=== PATIENT | female | born 1970 | race Caucasian/White ===

== ENCOUNTER 2019-12-06 05:54 | Observation (INO) | payer BC ==
[~2019-12-06 05:54] MED LIST: Buffered Lidocaine 1% SYRIN* 1 ML/SYRINGE INTRADERM ONE; Famotidine IV* 10 MG/ML 2 ML (20 mg) ONE; Levalbuterol 0.63MG/3ML NEB* UNIT OF USE INH ONE; Scopolamine 1.5 mg* PATCH ONE
[2019-12-06] MEDS ORDERED: Levalbuterol 0.63MG/3ML NEB* UNIT OF USE INH ONE (06:00)
[2019-12-06] MEDS ORDERED: Scopolamine 1.5 mg* PATCH TRANSDERM ONE (06:00)
[2019-12-06] MEDS ORDERED: Famotidine IV* 10 MG/ML 2 ML (20 mg) IV ONE (06:00)
[2019-12-06] MEDS ORDERED: Lactated Ringers 1000 ML Bag* 1,000 ML IV SCH (06:00)
[2019-12-06] MEDS ORDERED: Bupivacaine 0.5% W/EPI SDV* 30 ML VIAL ONE (06:54)
[2019-12-06] MEDS ORDERED: Bacitracin INJECTION* 50,000 UNITS ONE (06:55)
[2019-12-06] MEDS ORDERED: Vancomycin(*) 1,000 MG in NS 0.9% 250 ML* 250 ML IV ONE (07:00)
[2019-12-06] MEDS ORDERED: fentaNYL* 50 MCG/ML 5 ML VIAL (250 MCG VIAL) ONE (07:10)
[2019-12-06] MEDS ORDERED: Dexamethasone IV* 4 MG/ML 1 ML (4 MG) ONE (07:10)
[2019-12-06] MEDS ORDERED: Midazolam* 1 MG/ML 5 ML VIAL (5 MG) ONE (07:10)
[2019-12-06] MEDS ORDERED: Propofol* 10 MG/ML 20 ML BTL ONE (07:10)
[2019-12-06] MEDS ORDERED: Lidocaine 2% PF * 5 ML VIAL ONE (07:10)
[2019-12-06] MEDS ORDERED: KETAMINE HCL* 50 MG/ML 10 ML VIAL ONE (07:10)
[2019-12-06] MEDS ORDERED: Ondansetron INJ* 2 MG/ML VIAL ONE (07:10)
[2019-12-06] MEDS ORDERED: Rocuronium* 10 MG/ML VIAL ONE (07:10)
[2019-12-06] MEDS ORDERED: Artificial Tear OPHTH.OINT* 3.5 GM ONE (07:12)
[2019-12-06] MEDS ORDERED: EPHEDrine (Pressors)* 50 MG/ML VIAL ONE (08:23)
[2019-12-06] MEDS ORDERED: Phenylephrine 40 MCG/ML SYRINGE ONE (08:34)
[2019-12-06] MEDS ORDERED: Phenylephrine 10 MG/ML VIAL* 1 ML VIAL ONE (08:46)
[2019-12-06] MEDS ORDERED: HYDROmorphone INJ1* 1 MG/ML SYRINGE IV PRN (09:05)
[2019-12-06] MEDS ORDERED: Ondansetron INJ* 2 MG/ML VIAL IV PRN ×2 (09:05→10:34)
[2019-12-06] MEDS ORDERED: Naloxone* 0.4 MG/ML 1 ML VIAL IV PRN (09:05)
[2019-12-06] MEDS ORDERED: Levalbuterol 0.63MG/3ML NEB* UNIT OF USE INH PRN (09:05)
[2019-12-06] MEDS ORDERED: fentaNYL* 50 MCG/ML 2 ML VIAL (100 MCG VIAL) IV PRN (09:05)
[2019-12-06] MEDS ORDERED: Sugammadex * 200 MG/2 ML VIAL IV PUSH ONE (09:37)
[2019-12-06] MEDS ORDERED: Magnesium Hydroxide LIQ* 30 ML UDC PO PRN (10:34)
[2019-12-06] MEDS ORDERED: Acetaminophen TAB* 325 MG PO PRN (10:34)
[2019-12-06] MEDS ORDERED: oxyCODONE TAB* 5 MG TAB PO PRN ×2 (10:34)
[2019-12-06] MEDS ORDERED: Cyclobenzaprine TAB* 10 MG PO PRN (10:47)
[2019-12-06] MEDS ORDERED: Albuterol HFA INHALER* 8 gm MDI INH PRN (10:47)
[2019-12-06] MEDS ORDERED: Hydrocodone/Acetamin 10/325 MG 1 TAB PO PRN (10:47)
--- NOTE | 2019-12-06 11:05 | PN ---
Progress Note - Progress Note Date of Service: 12/06/19 SOAP: Postop Note Subjective: []Patient tolerated procedure well. Pain is well controlled. Preop LLE pain not present at this time. Objective: []VSS, Afebrile Wound s,c,d AAOx3 [place]AM[place], CN II-XII grossly intact. Motor 5/5 all extremities Sensory grossly intact to light touch Assessment: []49 yof POD#0 Left L5-S1 MIS discectomy Plan: []Monitor VS, Neurochecks OOB with assistance. Advance diet as tolerated. DC planning, later today or in am. DC instructions were given to the patient and her . No lifting, No bending, No driving. Keep incision dry. May shower in two days. No baths. Follow up in office in 7-[address] Cole's care. Meño Coffman MD
[2019-12-06] MEDS ORDERED: sulfaSALAzine TAB* 500 MG PO SCH ×2 (13:00→18:00)
--- NOTE | 2019-12-06 13:47 | CONS ---
CC: Dr. Cruz; Dr. Coffman; Andi Barraza NP; Dr. Wong Bai* CONSULTATION NOTE: DATE OF CONSULT: 12/06/19 PRIMARY CARE PROVIDER: Dr. Cruz. REQUESTING PHYSICIAN: Dr. Coffman. REASON FOR CONSULTATION: Postoperative medical management of the patient status post lumbar L5-S1 microdiskectomy performed today by Dr. Coffman. CHIEF COMPLAINT: Lower back pain. HISTORY OF PRESENT ILLNESS: Jyoti Barbosa is a 49-year-old female with history of breast cancer in remission, who is status post microdiskectomy performed by Dr. Coffman today. The medical management consult was requested by the Neurosurgery service for further treatment. Our service also is planning to take upon the attending from now on and discharge the patient when appropriate. The patient has history of left-sided lumbar nerve root impingement and had surgery today. She stated that preoperatively she had tingling as well as severe pain in the left buttocks especially when she tried to raise her left leg. She also complained of mild left leg weakness. Postoperatively, she feels well. She still feels that the left leg is "pulling" when she tries to raise it up. The pain is on the postoperative and lumbar area of the back. PAST MEDICAL HISTORY: 1. Rheumatoid arthritis. 2. Breast cancer in 2011, status post lumpectomy and chemotherapy that was on the right breast. 3. Neuropathy. 4. Osteoarthritis. 5. Gastroesophageal reflux disease. 6. Irritable bowel syndrome. 7. Depression. 8. Neck surgery twice. 9. Sinus surgery twice. 10. Right foot bunion resection in the past. 11. History of ganglion cyst surgery on the hand twice. 12. Status post appendectomy remotely. 13. Hypocalcemia under the care of Dr. Wong Bai. MEDICATIONS AT HOME: Include: 1. Albuterol inhaler on a p.r.n. basis. 2. Gabapentin 1800 mg at bedtime. 3. Flonase nasal spray 2 sprays both nostrils daily. 4. Flexeril 10 mg daily p.r.n. 5. Asmanex 1 inhalation b.i.d. 6. Anaspaz 0.125 mg, the patient takes 3 tablets in the morning. 7. Plaquenil 200 mg b.i.d. 8. [place] 10/325 mg 1 tablet every 6 hours p.r.n. 9. Gabapentin 300 mg in a.m. 10. Sulfasalazine 500 mg, the patient takes 1 tablet in the morning, so it is 500 in the morning and 2 tablets at night. 11. Bupropion XL 300 mg daily. 12. Rosuvastatin 10 mg daily. 13. Amlodipine 5 mg daily. 14. Hydrochlorothiazide 12.5 mg daily. 15. Folic acid with multivitamin 2 chewables daily. 16. Fosamax 70 mg every Tuesday. 17. Zyrtec 10 mg daily p.r.n. ALLERGIES: Include AMOXICILLIN and DOXYCYCLINE. FAMILY HISTORY: Positive for father who is doing well, had history of coronary artery bypass grafting and hypercholesterolemia. Mother with history of hypercholesterolemia and diabetes. One sister with obesity, hypertension and fatty liver. 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 She lives with her who is her surrogate. She is a full code. She denies any tobacco or drug use. She drinks alcohol rarely 1 to 2 drinks a month. REVIEW OF SYSTEMS: Please history of present illness. All the remaining 12 systems were reviewed with the patient and were otherwise negative. PHYSICAL EXAMINATION: Blood pressure of 137/80, heart rate of 98 and regular, respiratory rate 18, oxygen saturation 100% on room air, temperature 97.8. General: The patient is a pleasant 49-year-old female who is in no acute distress. The patient is alert and oriented x3. HEENT: Head: Atraumatic, normocephalic. Eyes: Pupils are equal and reactive to light and accommodation. Oropharynx is clear. Mucosa moist. Neck: Supple. No JVD. No bruits bilaterally. Cardiovascular: Regular rate and rhythm. No murmur. Respiratory : Clear to auscultation bilaterally. Abdomen: Soft, nontender. Bowel sounds are present in all 4 quadrants. On evaluation of the back, the patient's lower lumbar area has a postoperative incision in place on the left side of the spine. This is covered with postoperative dressings that were not removed for evaluation. There is no evidence of ecchymosis, cellulitis on the surrounding skin. Extremities: There is no edema. Pulses are +2 bilaterally. No clubbing or cyanosis. Neuro Evaluation: Speech is clear. Cranial nerves II through XII grossly intact. Motor strength is 5/5 in bilateral upper extremities and 4+/5 on straight leg raise and then left upper extremity. The left right lower extremity is 5/5. Bilateral plantar and dorsiflexion is 5/5 and Babinski sign negative bilaterally. Sensation is grossly intact. Psychiatric Evaluation: Oriented x3 with no evidence of anxiety or depression. DIAGNOSTIC STUDIES/LAB DATA: Most recent laboratory data was obtained on , which showed sodium of 138, potassium 3.6, chloride 98, carbon dioxide 30, BUN 28, creatinine 0.98. The patient's calcium was 8.3 and PTH was 28.1. ASSESSMENT AND PLAN: 1. The patient is a 49-year-old female with status post microdiskectomy of the L5- S1 performed by Dr. Coffman. I discussed the case with Dr. Coffman. The patient is welcome to go home if she feels strong enough to do so. She needs to be able to be ambulatory before discharge comfortable with pain management. She needs to have regular p.o. intake and had urinate before discharge. If she feels not comfortable and well enough to go home tonight, she would likely be discharged tomorrow. We will continue her [place] on as needed basis for pain control. 2. In regards of the patient's hypocalcemia, lower calcium is appears at the patient's baseline. It appears that the patient's urine study showed that she is having an elevated level of calcium in the urine. That will be further assessed by Dr. Bai from Endocrinology as outpatient. 3. In regards of the patient's rheumatoid arthritis, we will continue the patient's Plaquenil, sulfasalazine. Due to this that the patient received a dose of Zofran in the PACU. We will hold Plaquenil dose till the morning. 4. For irritable bowel syndrome, her Anaspaz is going to be continued. 5. For DVT prophylaxis, the patient is low risk and ambulation is going to be encouraged. 6. The patient's code status is full and her surrogate is her . TIME SPENT: Approximately 55 minutes was spent on consultation of this patient , more than half that time was spent [id number] with the patient during the interview and physical exam. Thank you very much for allowing our service to see your patient in consultation. We will take over the patient's primary service for now. We will be closely monitoring the patient and discussing the case with you prior to discharge. [id number]/CPS #: [id number] ELEN
[2019-12-06 17:01] VITALS: BP 124/77
[2019-12-06] MEDS ORDERED: Gabapentin CAP(*) 300 MG PO SCH (21:00)
[2019-12-06] MEDS ORDERED: Hydroxychloroquine TAB* 200 MG PO SCH (21:00)
[2019-12-06] MEDS ORDERED: amLODIPine TAB* 5 MG PO SCH (21:00)
--- NOTE | 2019-12-06 23:51 | OP ---
OPERATIVE REPORT: DATE OF OPERATION: 12/06/19 - Inpatient, SSU 332-01 DATE OF : 68 SURGEON: Bren Coffman MD PROGRAMMER ENGINEERING AND SCIENTIFIC: Rosalinda Brice. ANESTHESIA: General. PRE-OP DIAGNOSIS: Left L5-S1 herniated nucleus pulposus. POST-OP DIAGNOSIS: Left L5-S1 herniated nucleus pulposus. OPERATIVE PROCEDURE: The patient underwent a left L5-S1 MIS diskectomy with intraoperative microscope. ESTIMATED BLOOD LOSS: 5 cc. COMPLICATIONS: None. SUMMARY: The patient is a very pleasant 49-year-old female with complaints of back pain radiating to the left lower extremity. The patient had MRI findings consistent with large left L5-S1 disk herniation. After failing conservative treatment modalities, he was offered the option of surgical intervention after explaining expectations, limitations, possible complications of the procedure to the patient and her with complications included but not limited to bleeding, infection, risk of injury to adjacent structures, coma, paralysis, , need for additional procedure, anesthesia risks, stroke, blindness, cancer, instability, adjacent level disease, pseudoarthrosis, spondylolisthesis , disk recurrence, spinal fluid leak, injury to intraabdominal contents, loss of bladder or bowel control, injury to esophagus and trachea, need for tracheostomy or gastrostomy, need for prolonged ICU stay, prolonged hospitalization, prolonged rehabilitation, anesthesia risks, deep venous thrombosis, pulmonary embolism. The patient was agreeable to proceed with surgery and informed consent was obtained. The patient understood that her condition may not improve and in fact may get worse after surgery and that she may need to have additional procedure in the future. The patient understood that operative plan may be modified according to intraoperative findings and conditions, and that the case may be abandoned or done in more than 1 stage. She also understood that she may require prolonged hospitalization, prolonged rehabilitation, and prolonged ICU stay. DESCRIPTION OF PROCEDURE: The patient was brought to the operating room and was placed under general anesthesia by the anesthesia team. She was carefully positioned prone on the Javier frame on the Flavio table and all bony prominences were meticulously padded. Her skin was prepped and draped in the standard fashion. After appropriate surgical pause and patient identification, incision site was marked on the skin over the L5-S1 disk space with the assistance of intraoperative fluoroscopic imaging. The skin site was infiltrated with local anesthetic and incision was performed with a #10 surgical blade. The incision was carried down to the subcutaneous tissue and the dorsal fascia was divided with use of Bovie cautery. Over a series of dilators, the METRx tubular retractor system was introduced into the field and the left L5 lamina and L5-S1 facet joints as well as partial identified. Intraoperative microscope was brought into the field after optimizing the exposure. High-speed drill was used to perform a very small medial facetectomy and laminotomy, which was completed with Kerrison punches. The ligamentum flavum was gently reflected and resected with #3 Kerrison punches. The lateral border of the thecal sac as well as the S1 nerve root was identified and some ligamentous disk herniation was identified with the use of intraoperative fluoroscopic imaging. After gentle retraction of the nerve root with nerve root retractor, the posterior longitudinal ligament was gently divided with #15 surgical blade and diskectomy was performed. A very large disk fragment was removed along with smaller disk fragments. A defect in the annulus fibrosis was noted and this was enlarged with 15 surgical blade. Diskectomy was performed. Significant degeneration of the disk was identified. After all free fragments were gently removed and after copious irrigation with confirmation of meticulous hemostasis and meticulous inspection, then thecal and the nerve root was found to be free of any pressure phenomenon. Intraoperative fluoroscopic imaging confirmed the appropriate surgical level and second time-out was performed. Then after confirmation of meticulous hemostasis, copious irrigation, meticulous inspection and after performing of Valsalva maneuver to confirm the absence of spinal fluid leak or microhemorrhage. The tubular retractor system was removed and the wound was closed by layers with 0 interrupted Vicryl suture to approximate the dorsal fascia and 0 and 2-0 inverted Vicryl sutures to approximate the subcutaneous tissue. The skin was covered with Dermabond. At the end of the procedure, all counts were reported to be correct. The patient remained hemodynamically stable throughout the case. The patient was then turned supine, was extubated, and was transferred to Recovery in excellent condition. [id number]/[facility] #: [id number] [facility] HOSPITALAlexys
--- NOTE | 2019-12-07 03:06 | DS ---
CC: Dr. Cruz; Dr. Coffman* DISCHARGE SUMMARY: DATE OF ADMISSION: 12/06/19 DATE OF DISCHARGE: 12/06/19 PRIMARY CARE PROVIDER: Dr. Cruz. DISCHARGE DIAGNOSIS: Degenerative disk disease, status post L5-S1 microdiskectomy performed by Dr. Coffman today. MEDICATIONS AT DISCHARGE: Unchanged from admission and include: 1. Albuterol inhaler on a p.r.n. basis. 2. Fosamax 70 mg every Tuesday. 3. Norvasc 5 mg at bedtime. 4. Bupropion XL 300 mg daily. 5. Cetirizine 10 mg daily. 6. Flexeril 10 mg daily p.r.n. 7. Flovent nasal spray 2 sprays both nostrils daily. 8. Folic acid plus multivitamin 2 chewables daily. 9. Neurontin 1800 mg at bedtime and 300 mg q.a.m. 10. Hydrochlorothiazide 12.5 mg daily. 11. Hydrocodone/acetaminophen 10/325 mg 1 tablet every 6 hours p.r.n. 12. Plaquenil 200 mg b.i.d. 13. Anaspaz 0.375 mg q.a.m. 14. Asmanex inhaler 1 inhalation b.i.d. 15. Rosuvastatin 10 mg at bedtime. 16. Sulfasalazine 500 mg as previously taken 3 times a day. DISCHARGE INSTRUCTIONS: The patient's diet at discharge is as tolerated. In regards of the patient's ambulation, the patient is to ambulate as tolerated without any driving, lifting, or bending down. In regards of wound care, the patient is to shower in a couple of days. Keep dressing dry and intact, do shower. Once the dressing gets soiled or wet, remove it and replace it with a Band-Aid. In regards of followup, the patient is to follow up with Dr. Cruz in 4 to [address] Coffman to call for an appointment in approximately 7 to 10 days. PHYSICAL EXAMINATION AT DISCHARGE: Unchanged from the patient's consultation that I dictated today. HOSPITALIZATION COURSE: The patient is a 49-year-old female with history of left- sided sciatica symptoms and radiculopathy, who was noted to have degenerative disk disease. Dr. Coffman performed today microdiskectomy. Postoperatively, the patient did very well. She stayed postoperatively in the surgical stay unit for a few hours. She was able to ambulate without any major issues. She had no problems with urination and eating after surgery. She was ready to go home. She stated that she has chronic numbness on one side of her foot that is still there, but the sciatica pain resolved. She still has some postoperative pain and the lower back pain for which she is going to use her [place]. The patient is ready to go home with recommendation to follow up with her primary care provider and Dr. Coffman as above mentioned. CONDITION AT DISCHARGE: Stable. DISPOSITION AT DISCHARGE: Home. Please note that this is a short summary of the patient's hospitalization. Please refer to further medical records for details. [id number]/[facility] #: [id number] ELEN
[2019-12-07] MEDS ORDERED: sulfaSALAzine TAB* 500 MG PO SCH (09:00)
[2019-12-07] MEDS ORDERED: Gabapentin CAP(*) 300 MG PO SCH (09:00)
[2019-12-07] MEDS ORDERED: Fluticasone NASAL SPRAY 50MCG* 16 gm SPRAY BTL BOTH NARES SCH (09:00)
[2019-12-07] MEDS ORDERED: Hydroxychloroquine TAB* 200 MG PO SCH (09:00)
[2019-12-07] MEDS ORDERED: BuPROPion XL* 300 MG TAB.XL PO SCH (09:00)
[2019-12-07] MEDS ORDERED: Hyoscyamine TAB* 0.125 MG PO SCH (09:00)
[2019-12-09] MEDS ORDERED: Scopolamine PATCH Remove* 1 NOTE MISC PATCH OFF ONE (06:00)
== END 2019-12-06 17:30 | disposition home or self-care (01) ==
LOC: OR 05:54 → SSU 10:34
PROVIDERS: ADMIT Neurological Surgery; ATTEND Internal Medicine
DX: M51.16 Intervertebral disc disorders with radiculopathy, lumbar region (principal); M51.27 Other intervertebral disc displacement, lumbosacral region; M06.9 Rheumatoid arthritis, unspecified; Z85.3 Personal history of malignant neoplasm of breast; G62.9 Polyneuropathy, unspecified; M19.90 Unspecified osteoarthritis, unspecified site; K21.9 Gastro-esophageal reflux disease without esophagitis; K58.9 Irritable bowel syndrome, unspecified; F32.9 Major depressive disorder, single episode, unspecified; Z79.899 Other long term (current) drug therapy; Z88.0 Allergy status to penicillin
CPT/HCPCS: 76000; A9270-GY; G0378; J1100; J2250; J2405; J2704; J3010; J3370